=== PATIENT | male | born 1970 | race Caucasian/White ===

== ENCOUNTER 2019-01-18 16:07 | Emergency (ER) | payer SELFPAY ==
[~2019-01-18] VITALS: Ht 180.3 cm; Wt 72.6 kg
[2019-01-18 16:21] VITALS: BP 138/80
[2019-01-18 17:03] LABS: BASOPHILS # (AUTO) 0.2 /CMM (0.0-0.2); BASOPHILS % (AUTO) 4.1 % (0.0-2.0); EOSINOPHILS % (AUTO) 2.2 % (0.0-6.0); HEMATOCRIT 45 % (39-51); HEMOGLOBIN 14.9 g/dL (13.5-17.5); LYMPHOCYTES # (AUTO) 1.5 /CMM (0.8-4.8); LYMPHOCYTES % (AUTO) 27.1 % (20.0-44.0); MEAN CORPUSCULAR HGB CONC 33 g/dl (31.0-36.0); MEAN CORPUSCULAR VOLUME 98 fL (80-96); MONOCYTES # (AUTO) 0.3 /CMM (0.1-1.30); MONOCYTES % (AUTO) 5.9 % (2.0-12.0); NEUTROPHILS # (AUTO) 3.4 /CMM (1.8-8.9); NEUTROPHILS % (AUTO) 60.7 % (43.0-81.0); PLATELET COUNT (AUTO) 175 /CMM (150-450); WHITE BLOOD COUNT (AUTO) 5.7 K/uL (4.3-11.0)
[2019-01-18 17:12] LABS: CALCIUM, SERUM 8.5 mg/dL (8.5-10.1); CARBON DIOXIDE 29 mmol/L (21-32); CHLORIDE 107 mmol/L (98-107); CREATININE 0.8 mg/dL (0.6-1.3); GLUCOSE 83 mg/dL (74-106); POTASSIUM 3.9 mmol/L (3.5-5.1); SODIUM SERUM 144 mmol/L (136-145); UREA NITROGEN, BLOOD 9 mg/dL (7-18)
[2019-01-18 17:26] LABS: ALANINE AMINOTRANSFERASE 30 U/L (12-78); ALCOHOL, BLOOD 475 mg/dL (0-0); ALKALINE PHOSPHATASE 79 U/L (46-116); ASPARTATE AMINOTRANSFERASE 33 U/L (15-37); BILIRUBIN,DIRECT 0.1 mg/dL (0.0-0.2); BILIRUBIN,TOTAL 0.2 mg/dL (0.2-1.0); SALICYLATE 7.6 mg/dL (2.8-20.0); TOTAL PROTEIN, SERUM 7.3 g/dL (6.4-8.2)
[2019-01-18 17:27] LABS: ACETAMINOPHEN < 2 ug/ml (10-30)
[2019-01-18] MEDS ORDERED: HALOPERIDOL LACTATE INJ 5 MG/ML VIAL IM ONE (17:30)
[2019-01-18] MEDS ORDERED: HALOPERIDOL LACTATE INJ 5 MG/ML VIAL ONE (17:44)
[2019-01-18] MEDS ORDERED: MIDAZOLAM HCL 2 MG/2ML VIAL IM ONE (18:00)
--- NOTE | 2019-01-18 21:02 | NUR ---
pt sleeping in gurney. pt easily arousable. will cont to monitor pt.
--- NOTE | 2019-01-19 05:07 | NUR ---
PT REFUSING HOMELESS PACKET, STATING "IM NOT HOMELESS. IM GOOD BRO"
== END 2019-01-19 05:08 | disposition home or self-care (01) ==
LOC: EDBD 16:10 → ER 16:10
DX: F10.129 Alcohol abuse with intoxication, unspecified (principal); R40.4 Transient alteration of awareness; Z59.0 Homelessness
CPT/HCPCS: 36415; 70450; 71045; 80048; 80076; 80307; 80329; 82550; 85025; 93005; 96372; 99284; A4606; G0480; J1630

== ENCOUNTER 2019-10-16 12:25 | Emergency (ER) | payer SELFPAY ==
[~2019-10-16] VITALS: Ht 180.3 cm; Wt 72.6 kg
--- NOTE | 2019-10-16 12:47 | NUR ---
PT [id number] WITH [employer] FROM [place] STREET FOR ETOH, NO MEDICAL COMPLAINTS. PT ALTERED LOC. NO DISTRESS NOTED. PT CONNECTED TO THE MAINTENANCE LEADER AND CONTINOUS POX. AWAITING FOR MD OGLESBY.
[2019-10-16 16:22] VITALS: BP 128/75
--- NOTE | 2019-10-16 16:23 | NUR ---
Patient given written and verbal discharge instructions. Patient verbalizes understanding of instructions. Patient discharged on wheelchair. Refuses offer of skilled nursing placement. Patient given list of available shelters in surrounding area. patient in proper clothing upon discharge. All belongings returned. Name band removed. Cannot sign homeless waiver due to stroke in the past per patient.
== END 2019-10-16 16:25 | disposition home or self-care (01) ==
LOC: ER 12:31
DX: F10.129 Alcohol abuse with intoxication, unspecified (principal); Z86.73 Personal history of transient ischemic attack (TIA), and cerebral infarction without residual deficits; Z59.0 Homelessness; Y90.9 Presence of alcohol in blood, level not specified